=== PATIENT | male | born 1960 | race Caucasian/White ===

== ENCOUNTER 2020-03-19 09:23 | Emergency (ER) | payer OTHER ==
[~2020-03-19] VITALS: Ht 182.9 cm; Wt 90.7 kg
[2020-03-19] MEDS ORDERED: HYDR1TAB94 PO (11:32)
[2020-03-19] MEDS ORDERED: PRED20 PO (11:32)
[2020-03-19] MEDS ORDERED: DOCU100 PO (11:32)
[2020-03-19] MEDS ORDERED: CYCL10 PO (11:32)
== END 2020-03-19 11:51 | disposition home or self-care (01) ==
LOC: ER 09:23
DX: M51.16 Intervertebral disc disorders with radiculopathy, lumbar region (principal)
CPT/HCPCS: 72100; 72170; 99283-25; A9270-GY; J1100

== ENCOUNTER 2020-08-29 08:34 | Emergency (ER) | payer OTHER ==
[~2020-08-29] VITALS: Ht 182.9 cm; Wt 90.7 kg
[~2020-08-29 08:34] MED LIST: CYCL10 PO; DOCU100 PO; HYDR1TAB94 PO; PRED20 PO
[2020-08-29] MEDS ORDERED: Norco 5-325 Ta1 EACH PO (09:14)
== END 2020-08-29 09:24 | disposition home or self-care (01) ==
LOC: ER 08:34
DX: M25.461 Effusion, right knee (principal)
CPT/HCPCS: 99283

== ENCOUNTER 2021-05-15 06:58 | Emergency (ER) | payer OTHER ==
[~2021-05-15] VITALS: Ht 182.9 cm; Wt 81.7 kg
[~2021-05-15 06:58] MED LIST changes: +Norco 5-325 Ta1 EACH PO
[2021-05-15] MEDS ORDERED: HTN MED (07:17)
[2021-05-15] MEDS ORDERED: TAMS.4ER (07:17)
[2021-05-15] MEDS ORDERED: EYE GTTS (07:17)
[2021-05-15] MEDS ORDERED: Norco 5-325 Ta1 EACH PO (07:57)
[2021-05-15] MEDS ORDERED: IBUP600 PO (07:57)
== END 2021-05-15 08:17 | disposition home or self-care (01) ==
LOC: ER 06:58
DX: S23.29XA Dislocation of other parts of thorax, initial encounter (principal); I10 Essential (primary) hypertension; F17.210 Nicotine dependence, cigarettes, uncomplicated
CPT/HCPCS: 71101; 99283-25

== ENCOUNTER 2023-11-08 16:13 | Emergency (ER) | payer MEDICARE, OTHER ==
[~2023-11-08] VITALS: Ht 182.9 cm; Wt 77.1 kg
[~2023-11-08 16:13] MED LIST changes: +EYE GTTS; +HTN MED; +IBUP600 PO; +TAMS.4ER
[2023-11-08 17:21] LABS: BASOPHILS ABSOLUTE AUTO 0.02 K/mm3 (0.00-0.23); BASOPHILS PERCENT AUTO 0 % (0-2); EOSINOPHILS PERCENT AUTO 0 % (0-6); Hemoglobin 15.1 g/dL (13.5-17.5); IMMATURE GRAN ABSOLUTE AUTO 0.03 K/mm3 (0.00-0.10); IMMATURE GRAN PERCENT AUTO 0 % (0-1); LYMPHOCYTES ABSOLUTE AUTO 0.77 K/mm3 (0.84-5.20); LYMPHOCYTES PERCENT AUTO 8 % (21-46); MONOCYTES ABSOLUTE AUTO 0.38 K/mm3 (0.16-1.47); MONOCYTES PERCENT AUTO 4 % (4-13); Mean Corpuscular HGB 32.7 pg (26.0-34.0); Mean Corpuscular HGB Conc 35.1 g/dL (31.5-36.5); Mean Corpuscular Volume 93 fL (80-100); Mean Platelet Volume 10.3 fL (9.1-12.4); NEUTROPHILS ABSOLUTE AUTO 8.64 K/mm3 (1.96-9.15); NEUTROPHILS PERCENT AUTO 88 % (41-73); Platelet Count 135 K/mm3 (150-400); RDW Coefficient Variation 12.6 % (11.7-14.2); RDW Standard Deviation 43.2 fL (35.1-46.3); Red Blood Cell Count 4.62 M/mm3 (4.30-5.90); White Blood Cell Count 9.84 K/mm3 (4.00-11.30)
[2023-11-08 17:56] LABS: Albumin, Blood 3.4 g/dL (3.4-5.0); Bilirubin, Total 0.4 mg/dL (0.1-1.0); Bun/Creatinine Ratio 21.2 (12.0-20.0); Calcium, Blood 9.4 mg/dL (8.5-10.1); Creatinine, Blood 0.85 mg/dL (0.60-1.20); Globulin, Blood 3.5 g/dL (2.2-4.0); Potassium, Blood 3.9 mmol/L (3.5-5.5); Total Protein, Blood 6.9 g/dL (6.4-8.2)
[2023-11-08 18:15] LABS: Source, Urine Clean Catch
[2023-11-08 18:37] LABS: Appearance, Urine Clear (Clear); Bilirubin, Urine Neg (Neg); Blood, Urine Neg (Neg); Color, Urine Amber (P-Yellow); Glucose Qualitative, Urine Neg (Neg); Ketones, Urine Neg (Neg); Leukocyte Esterase, Urine Neg (Neg); Nitrite, Urine Neg (Neg); Protein, Urine Neg (Neg); Specific Gravity, Urine 1.015 (1.003-1.022); Urobilinogen, Urine 1+ (Normal); pH, Urine 6.5 (5.0-8.0)
[2023-11-08] MEDS ORDERED: HYDCHL25 (21:33)
[2023-11-08 21:36] LABS: International Normalized Ratio 1.04; Prothrombin Time Results 10.9 Sec (9.7-11.5)
[2023-11-08] MEDS ORDERED: BRIMONIDINE-TIMO5 ML BOTHEYES (21:40)
[2023-11-08 21:45] VITALS: BP 126/80
[2023-11-08] MEDS ORDERED: XARELTO15 MG PO (21:52)
[2023-11-14 13:30] LABS: ANTITHROMBIN, ENZYMAT ACTIVITY 120 % (76-128); APC RESISTANCE 4.78 (>=2.00); B2GLYCOPROTEIN 1, IGG ANTIBODY <10 SGU (<=20); B2GLYCOPROTEIN 1, IGM ANTIBODY <10 SMU (<=20); CARDIOLIPIN ANTIBODY IGG 20 GPL (<=14); CARDIOLIPIN ANTIBODY IGM <10 MPL (<=12); FACTOR V LEIDEN BY PCR Not Done; FACV REF SPECIMEN Not Done; HOMOCYSTEINE, TOTAL 10 umol/L (0-15); PROTEIN C FUNCTIONAL 110 % (83-168); PROTEIN S AG FREE 91 % (74-147); PROTHROMBIN F2 G20210A VARIANT Negative; PROTHROMBIN TIME 14.3 sec (12.0-15.5); PT PCR SPECIMEN Whole Blood; PTT-D 1:1 MIX 40 sec (32-48); PTT-LA SCREEN (PTT-D) 52 sec (32-48); THROMBIN TIME 16.8 sec (14.7-19.5)
== END 2023-11-08 22:05 | disposition home or self-care (01) ==
LOC: ER 16:13
PROVIDERS: Emergency Medicine; Student in an Organized Health Care Education/Training Program
DX: D73.5 Infarction of spleen (principal); N39.8 Other specified disorders of urinary system; I10 Essential (primary) hypertension; F17.210 Nicotine dependence, cigarettes, uncomplicated
CPT/HCPCS: 71046; 74177; 80053; 81003; 81240; 83090; 83690; 85025; 85300; 85303; 85306; 85307; 85610; 85613; 85670; 85730; 85732; 86146; 86147; 93005; 93010; 99284-25; A9270; Q9967

== ENCOUNTER 2025-05-14 08:18 | Emergency (ER) | payer MEDICARE, OTHER ==
[~2025-05-14] VITALS: Ht 177.8 cm; Wt 81.7 kg
[~2025-05-14 08:18] MED LIST changes: +BRIMONIDINE-TIMO5 ML BOTHEYES; +HYDCHL25; +XARELTO15 MG PO
[2025-05-14 09:07] VITALS: BP 152/90
[2025-05-14] MEDS ORDERED: BACTRIM DS TAB1 EAC3 PO (11:01)
== END 2025-05-14 11:30 | disposition home or self-care (01) ==
LOC: ER 08:18
DX: L03.116 Cellulitis of left lower limb (principal); I10 Essential (primary) hypertension; F17.210 Nicotine dependence, cigarettes, uncomplicated; Z79.01 Long term (current) use of anticoagulants; Z79.899 Other long term (current) drug therapy
CPT/HCPCS: 10061; 99282-25

== ENCOUNTER 2025-05-19 07:10 | Emergency (ER) | payer MEDICARE, OTHER ==
[~2025-05-19] VITALS: Ht 182.9 cm; Wt 80.7 kg
[~2025-05-19 07:10] MED LIST changes: +BACTRIM DS TAB1 EAC3 PO
[2025-05-19 07:30] VITALS: BP 135/84
[2025-05-19] MEDS ORDERED: DOXY100 PO (07:53)
[2025-05-19] MEDS ORDERED: CEPH500 PO (07:53)
== END 2025-05-19 08:04 | disposition home or self-care (01) ==
LOC: ER 07:10
DX: Z48.02 Encounter for removal of sutures (principal); L03.116 Cellulitis of left lower limb; L02.416 Cutaneous abscess of left lower limb; I10 Essential (primary) hypertension; Z79.01 Long term (current) use of anticoagulants; Z79.899 Other long term (current) drug therapy; F17.210 Nicotine dependence, cigarettes, uncomplicated
CPT/HCPCS: 99281